=== PATIENT | female | born 1995 | race Caucasian/White ===

== ENCOUNTER 2019-03-18 12:15 | Outpatient (CLI) | payer BC ==
[~2019-03-18] VITALS: Ht 165 cm
[~2019-03-18 12:15] MED LIST: CETI10TA20 PO; FLUT9.9S NS
== END 2019-03-18 12:37 | disposition home or self-care (01) ==
LOC: PREOP 12:15
PROVIDERS: ATTEND Otolaryngology Otolaryngology/Facial Plastic Surgery
DX: Z01.818 Encounter for other preprocedural examination (principal)

== ENCOUNTER 2019-03-26 08:45 | Day surgery (SDC) | payer BC ==
[~2019-03-26] VITALS: Ht 165 cm; Wt 102.0 kg
[2019-03-26] VITALS (13 sets, daily range): BP systolic 95–156; BP diastolic 46–106
[2019-03-26] MEDS ORDERED: LACTATED RINGERS 1,000 ML IV PRN (08:56)
[2019-03-26] MEDS ORDERED: MIDAZOLAM 2 MG/2 ML (VERSED) VIAL IV ONE (09:00)
[2019-03-26 09:22] LABS: BASOPHILS % (AUTO) 0 % (0-10); EOSINOPHILS # (AUTO) 0.3 10^3/uL (0.0-0.3); EOSINOPHILS % (AUTO) 3 % (0-10); HEMATOCRIT 42 % (35-52); HEMOGLOBIN 13.6 G/DL (11.5-16.0); LYMPHOCYTES # (AUTO) 2.6 X 10^3 (1.0-4.0); LYMPHOCYTES % (AUTO) 31 % (12-44); MEAN CORPUSCULAR HEMOGLOBIN 24 PG (25-34); MEAN CORPUSCULAR HGB CONC 32 G/DL (32-36); MEAN CORPUSCULAR VOLUME 75 FL (80-99); MEAN PLATELET VOLUME 12.1 FL (7.4-10.4); MONOCYTES # (AUTO) 0.6 X 10^3 (0.0-1.0); MONOCYTES % (AUTO) 8 % (0-12); NEUTROPHILS # (AUTO) 4.9 X 10^3 (1.8-7.8); NEUTROPHILS % (AUTO) 58 % (42-75); PLATELET COUNT 224 10^3/uL (130-400); RED CELL DISTRIBUTION WIDTH 15.1 % (10.0-14.5); WHITE BLOOD COUNT 8.3 10^3/uL (4.3-11.0)
[2019-03-26] MEDS ORDERED: SCOPOLAMINE 1.5 MG (TRANSDERM-SCOP) PATCH TOP ONE (09:30)
[2019-03-26] MEDS ORDERED: FAMOTIDINE 20MG/2ML IV (PEPCID) IV ONE (09:30)
[2019-03-26] MEDS ORDERED: ONDANSETRON 4 MG/2 ML (SDV) Z0FRAN IV ONE (09:30)
[2019-03-26] MEDS ORDERED: PHENYLEPHRINE 0.5% NASAL SPR (NEO-SYNEPHRINE) REG ONE (10:20)
[2019-03-26] MEDS ORDERED: LIDOCAINE/EPI 1%-1:100,000 (XYLOCAINE) 20ML ONE (10:20)
[2019-03-26] MEDS ORDERED: fentaNYL INJECTION 100 MCG/2 ML AMP ONE (10:30)
[2019-03-26] MEDS ORDERED: LIDOCAINE PF 2% 5 ML (XYLOCAINE) VIAL ONE (10:30)
[2019-03-26] MEDS ORDERED: ONDANSETRON 4 MG/2 ML (SDV) Z0FRAN ONE (10:30)
[2019-03-26] MEDS ORDERED: DEXAMETHASONE 10 MG/ML (DECADRON) 1 ML VIAL ONE (10:31)
[2019-03-26] MEDS ORDERED: PROPOFOL INJECTION 50 ML IV ONE (10:31)
[2019-03-26] MEDS ORDERED: SEVOFLURANE (ULTANE) 15 ML INHAL SOLN ONE ×3 (10:31→11:31)
--- NOTE | 2019-03-26 10:51 | Progress Note-Pre Operative ---
Pre-Operative Progress Note H&P Reviewed The H&P was reviewed, patient examined and no changes noted. Date Seen by Provider: Mar 26, 2019 Time Seen by Provider: 10:15 Date H&P Reviewed: Mar 26, 2019 Time H&P Reviewed: 10:50 Pre-Operative Diagnosis: Tonsil isidra poss adenoid hyper, Bialt hyper of Inf Turbs JEREMIAS CORMIER MD Mar 26, 2019 10:50
[2019-03-26] MEDS ORDERED: NS IV 1000 ML 1,000 ML IV SCH (11:36)
--- NOTE | 2019-03-26 11:36 | Progress Note-Post Operative ---
Post-Operative Progess Note Surgeon (s)/Trimmer Hand (s) Surgeon JEREMIAS CORMIER MD Trimmer Hand n/a Pre-Operative Diagnosis Tonsil isidra poss adenoid hyper, Bialt hyper of Inf Turbs Post-Operative Diagnosis same Post-Op Procedure Note Date of Procedure: Mar 26, 2019 Name of Procedure Performed: Tonsillectomy, Bialteral Partial REduction of Inferior Turbinates Description & Findings Description and Findings: n/a Anesthesia Type get Estimated Blood Loss minimal Packing none. Specimen(s) collected/removed tonsils JEREMIAS CORMIER MD Mar 26, 2019 11:36
[2019-03-26] MEDS ORDERED: HYDROcodone/APAP 7.5MG-325 MG/15 ML (LORTAB) UDC PO PRN (11:45)
[2019-03-26] MEDS ORDERED: APAP 325 MG/10.15 ML LIQ (TYLENOL) UDC PO PRN (11:45)
[2019-03-26] MEDS ORDERED: PROMETHAZINE INJ 25 MG/ML (PHENERGAN) AMP IVP ONE (12:00)
[2019-03-26] MEDS ORDERED: morphine INJ 10 MG/ML 1ML (SYR OR VIAL) IVP ONE (12:00)
[2019-03-26] MEDS ORDERED: ONDANSETRON 4 MG/2 ML (SDV) Z0FRAN IVP PRN (12:00)
[2019-03-26] MEDS ORDERED: MEPERIDINE (DEMEROL) INJ 50 MG/ML IVP ONE (12:00)
--- NOTE | 2019-03-26 12:19 | Anesthesia-General Post-Op ---
General Patient Condition Mental Status/LOC: Same as Preop Cardiovascular: Satisfactory Nausea/Vomiting: Absent Respiratory: Satisfactory Pain: Controlled Complications: Absent Post Op Complications Complications None Follow Up Care/Instructions Patient Instructions None needed. Anesthesia/Patient Condition Patient Condition Patient is doing well, no complaints, stable vital signs, no apparent adverse anesthesia problems. No complications reported per nursing. BURKE MOODY CRNA Mar 26, 2019 12:19
[2019-03-26] MEDS ORDERED: AZIT100S19 PO (13:48)
[2019-03-26] MEDS ORDERED: DEXAINTSOL PO (13:48)
[2019-03-26] MEDS ORDERED: TETRACAINESUCKERS MT (13:48)
[2019-03-26] MEDS ORDERED: HYDR15SO8 PO (13:50)
== END 2019-03-26 14:50 | disposition home or self-care (01) ==
LOC: SDC 08:45
PROVIDERS: ATTEND Otolaryngology Otolaryngology/Facial Plastic Surgery
DX: J34.3 Hypertrophy of nasal turbinates (principal); J35.01 Chronic tonsillitis; J98.8 Other specified respiratory disorders; Z88.8 Allergy status to other drugs, medicaments and biological substances; Z79.899 Other long term (current) drug therapy
CPT/HCPCS: 36415; 84703; 85025; 87081; 88304